=== PATIENT | female | born 1975 | race Caucasian/White ===

== ENCOUNTER 2017-10-04 10:45 | Emergency (ER) | payer OTHER ==
[~2017-10-04] VITALS: Ht 165.1 cm; Wt 53.5 kg
[2017-10-04] MEDS ORDERED: ATIVAN0.5 MG PO (10:59)
[2017-10-04] MEDS ORDERED: PROZAC20 MG PO (10:59)
[2017-10-04] MEDS ORDERED: IBUPROFEN 800800 MG PO (11:42)
[2017-10-04] MEDS ORDERED: NORCO 5-325 TA1 EACH PO (11:42)
[2017-10-04 12:16] VITALS: BP 126/79
== END 2017-10-04 12:16 | disposition home or self-care (01) ==
LOC: M.ERS 10:45
DX: R07.81 Pleurodynia (principal); F17.210 Nicotine dependence, cigarettes, uncomplicated; Z98.890 Other specified postprocedural states

== ENCOUNTER 2018-04-13 18:03 | Inpatient (IN) | payer OTHER ==
[~2018-04-13] VITALS: Ht 162.6 cm; Wt 61.2 kg
--- NOTE | ~2018-04-13 | CON ---
[address] [address] CONSULTATION Name: TRACE BLANCHARD Room: [address] IN ..#: [id number] Admission: 04/13/18 Attend Phys: Cruz James Discharge: Date of : 75 Report #: [id number] THIS REPORT FOR: //name// CC: Hayden Caba DATE OF SERVICE: 04/14/2018 HISTORY OF PRESENT ILLNESS: This is a pleasant 42-year-old female, with past medical history significant for depression, who is presenting with sudden onset abdominal cramps and rectal bleeding. The patient reports symptoms began yesterday. She reports she noticed a sudden gush of fluid in her underwear and noted that this was blood. The patient reports passing about 2 cupfuls of bright red blood along with clots. She reports lower abdominal pain, but denies any rectal pain. She reports associated nausea and vomiting in the morning, but denies any hematemesis. The patient denies having similar episodes in the past and has never had a colonoscopy prior. The patient does report intermittent NSAID use and also marijuana use. PAST MEDICAL HISTORY: Significant for depression. PAST SURGICAL HISTORY: Significant for hysterectomy. SOCIAL HISTORY: The patient smokes tobacco every day. She is a 1 pack per day smoker. As mentioned above, she reports intermittent marijuana use, last use was about 3 months back. She denies significant alcohol use. FAMILY HISTORY: There is no significant family history of colorectal cancer. REVIEW OF SYSTEMS: Negative except for what is mentioned in the HPI. PHYSICAL EXAMINATION: VITAL SIGNS: Temperature 36.5, pulse rate 50, blood pressure 104/57, respirations 17. GENERAL: The patient is alert, awake, oriented x 3, appears to be in mild distress. HEENT: Pupils equal, round, reactive to light and accommodation. Mucous membranes are moist. There is no congestion. LUNGS: Clear to auscultation bilaterally. CARDIOVASCULAR: Rate and rhythm regular, S1, S2 present. ABDOMEN: Soft. There is no distention, guarding or rigidity. EXTREMITIES: Warm, well perfused. There is no edema. SKIN: Warm and dry. LABORATORY DATA: Hemoglobin 11.3, hematocrit 33.3, WBC count 6.1, platelet count 231. Sodium 144, potassium 4.1, chloride 111, bicarbonate 25, BUN 8, [place] [address] CONSULTATION Name: TRACE BLANCHARD Room: [address]#: [id number] Admission: 04/13/18 Attend Phys: Cruz James Discharge: Date of : 75 Report #: [id number] creatinine 0.8, total bilirubin 0.4, AST 13, ALT 18, alkaline phosphatase 67. CT abdomen and pelvis demonstrates no intra-abdominal pelvic organ injury. GI bleeding scan, no active gastrointestinal bleeding noted. ASSESSMENT AND PLAN: A pleasant 42-year-old female, who is a current smoker, presenting with acute lower abdominal cramps and rectal bleeding. The patient also reports nausea and vomiting. There is no evidence of hematemesis. I suspect this is related to ischemic colitis, but since the patient has nonsteroidal anti-inflammatory drug use in the past and also has nausea and vomiting, we will proceed with EGD and colonoscopy tomorrow. Further recommendations will be based on that. By: [id number] Bonilla MD /nt
[~2018-04-13 18:03] MED LIST: ATIVAN0.5 MG PO; IBUPROFEN 800800 MG PO; NORCO 5-325 TA1 EACH PO; PROZAC20 MG PO
[2018-04-13 18:12] VITALS: BP 152/98
[2018-04-13 18:54] LABS: ABSOLUTE BASOPHILS 0.1 thou/uL (0.0-0.2); ABSOLUTE EOSINOPHILS 0.1 thou/uL (0.0-0.7); ABSOLUTE LYMPHOCYTES 3.4 thou/uL (0.8-5.3); ABSOLUTE MONOCYTES 0.4 thou/uL (0.0-1.2); ABSOLUTE NEUTROPHILS 3.2 thou/uL (1.6-8.1); EOSINOPHILS 0.9 %; HEMATOCRIT 36.6 % (37.0-47.0); HEMOGLOBIN 12.4 gm/dL (12.0-15.0); LYMPHOCYTES 47.8 %; MCH 30.4 pg (26.0-34.0); MCHC 33.8 g/dL (28.0-37.0); MCV 90.1 fL (80.0-100.0); MONOCYTES 5.5 %; MPV 7.3 fl. (7.2-11.1); NUCLEATED RBCS 0 /100WBC; PLATELET COUNT* 268 thou/uL (150-400); POLYS 44.8 %; RBC 4.07 mil/uL (4.20-5.00); RDW-CV 13.4 % (10.5-14.5); WBC 7.1 thou/uL (4.0-11.0)
[2018-04-13 19:00] LABS: CALCIUM 9.2 mg/dL (8.5-10.1); CREATININE 0.9 mg/dL (0.6-1.3); POTASSIUM 3.2 mmol/L (3.5-5.1)
[2018-04-13 19:03] LABS: APTT 28.9 Seconds (25.0-31.3); INR 1.1; PROTIME 11.3 Seconds (9.20-11.50)
[2018-04-13 19:04] LABS: ALBUMIN 3.8 g/dL (3.4-5.0); TOTAL BILIRUBIN 0.4 mg/dL (<0.1-1.0); TOTAL PROTEIN 7.2 g/dL (6.4-8.2)
[2018-04-13 19:27] LABS: URINE BILIRUBIN NEGATIVE (Negative); URINE BLOOD 2+ (Negative); URINE CLARITY CLEAR; URINE COLOR YELLOW; URINE GLUCOSE-RANDOM NEGATIVE (Negative); URINE KETONES NEGATIVE (Negative); URINE LEUKOCYTES-REFLEX NEGATIVE (Negative); URINE NITRITE-REFLEX NEGATIVE (Negative); URINE PROTEIN NEGATIVE (Negative); URINE UROBILINOGEN 0.2 E.U./dl (0.2-1.0)
[2018-04-13 19:41] LABS: SQUAMOUS 0-3 Few /LPF (0-3); URINE RBC 0-2 Rare /HPF (0-2); URINE WBC-REFLEX 6-15 Few /HPF (0-5)
[2018-04-13 19:42] LABS: BACTERIA-REFLEX >30 Many /HPF (None Seen); CASTS None Seen /LPF (None Seen); CRYSTALS None Seen /LPF (None Seen)
[2018-04-13 20:26] LABS: HEMATOCRIT 34.3 % (37.0-47.0); HEMOGLOBIN 11.6 gm/dL (12.0-15.0)
[2018-04-13 21:15] VITALS: BP 105/68
[2018-04-14] VITALS: BP 106/66
[2018-04-14 00:43] LABS: HEMATOCRIT 33.9 % (37.0-47.0); HEMOGLOBIN 11.5 gm/dL (12.0-15.0)
[2018-04-14 04:00] VITALS: BP 113/74
[2018-04-14 04:43] LABS: HEMATOCRIT 33.6 % (37.0-47.0); HEMOGLOBIN 11.3 gm/dL (12.0-15.0)
[2018-04-14 08:00] VITALS: BP 95/63
[2018-04-14 08:29] LABS: HEMOGLOBIN 11.3 gm/dL (12.0-15.0)
[2018-04-14 09:55] LABS: CALCIUM 8.2 mg/dL (8.5-10.1); CREATININE 0.8 mg/dL (0.6-1.3); POTASSIUM 4.1 mmol/L (3.5-5.1)
[2018-04-14 09:58] LABS: ABSOLUTE BASOPHILS 0.1 thou/uL (0.0-0.2); ABSOLUTE EOSINOPHILS 0.1 thou/uL (0.0-0.7); ABSOLUTE LYMPHOCYTES 3.4 thou/uL (0.8-5.3); ABSOLUTE MONOCYTES 0.5 thou/uL (0.0-1.2); ABSOLUTE NEUTROPHILS 2.1 thou/uL (1.6-8.1); BASOPHILS 0.8 %; EOSINOPHILS 1.3 %; MCH 30.8 pg (26.0-34.0); MCHC 33.7 g/dL (28.0-37.0); MCV 91.3 fL (80.0-100.0); MONOCYTES 7.9 %; MPV 7.3 fl. (7.2-11.1); NUCLEATED RBCS 0 /100WBC; PLATELET COUNT* 231 thou/uL (150-400); RBC 3.67 mil/uL (4.20-5.00); RDW-CV 13.2 % (10.5-14.5); WBC 6.1 thou/uL (4.0-11.0)
[2018-04-14 12:21] VITALS: BP 104/57
[2018-04-14 16:57] VITALS: BP 104/57
[2018-04-14 20:00] VITALS: BP 139/73
[2018-04-15] VITALS: BP 109/53
[2018-04-15 04:00] VITALS: BP 117/76
[2018-04-15 08:00] VITALS: BP 121/72
[2018-04-15] MEDS ORDERED: CIPRO500 MG PO (09:53)
[2018-04-15] MEDS ORDERED: ACETAMINOPHEN-1 EAC1 PO (09:53)
[2018-04-15] MEDS ORDERED: FLAGYL500 M1 PO (09:53)
[2018-04-15] MEDS ORDERED: PROTONIX40 M1 PO (09:53)
[2018-04-15 10:24] VITALS: BP 117/76
[2018-04-15 11:03] LABS: ABSOLUTE BASOPHILS 0.1 thou/uL (0.0-0.2); ABSOLUTE EOSINOPHILS 0.1 thou/uL (0.0-0.7); ABSOLUTE LYMPHOCYTES 1.9 thou/uL (0.8-5.3); ABSOLUTE MONOCYTES 0.4 thou/uL (0.0-1.2); ABSOLUTE NEUTROPHILS 5.2 thou/uL (1.6-8.1); BASOPHILS 0.9 %; EOSINOPHILS 0.8 %; HEMATOCRIT 33.8 % (37.0-47.0); HEMOGLOBIN 11.5 gm/dL (12.0-15.0); LYMPHOCYTES 24.5 %; MCH 30.8 pg (26.0-34.0); MCHC 33.9 g/dL (28.0-37.0); MCV 90.9 fL (80.0-100.0); MONOCYTES 5.6 %; MPV 7.2 fl. (7.2-11.1); NUCLEATED RBCS 0 /100WBC; PLATELET COUNT* 220 thou/uL (150-400); POLYS 68.2 %; RBC 3.72 mil/uL (4.20-5.00); RDW-CV 12.9 % (10.5-14.5); WBC 7.7 thou/uL (4.0-11.0)
[2018-04-15 11:08] LABS: CALCIUM 8.3 mg/dL (8.5-10.1); CREATININE 0.9 mg/dL (0.6-1.3); POTASSIUM 3.7 mmol/L (3.5-5.1)
--- NOTE | 2018-04-15 11:52 | CON ---
[address] [address] CONSULTATION Name: TRACE BLANCHARD Room: [address] IN .R.#: [id number] Admission: 04/13/18 Attend Phys: Cruz James Discharge: Date of : 75 Report #: [id number] THIS REPORT FOR: //name// CC: Hayden Caba DATE OF SERVICE: 04/14/2018 INFECTIOUS DISEASE CONSULTATION: ATTENDING PHYSICIAN: Dr. Caba. REASON FOR EVALUATION: Positive blood culture in the setting of a gastrointestinal hemorrhage. HISTORY OF PRESENT ILLNESS: Chart reviewed, patient examined. This is a 42-year-old woman with a previous partial hysterectomy, although it was 5 years ago, who presented with a fairly acute bleeding. Initially, felt to be vaginal, however, evaluation suggested by exclusion probably rectal. She became lightheaded. It is not clear that she had fevers, although feels quite shaky, some cold sweats that she describes. She recently has had poor appetite. She does admit to weight loss of perhaps 15-20 pounds, although she is not very big, now less than 120 pounds. Blood culture at the time of admission were collected, now one out of two positive for gram-positive cocci in chains. She is empirically placed on antimicrobials with vancomycin and piperacillin tazobactam. Currently, she is experiencing nausea pending emesis. ALLERGIES: None known. MEDICATIONS: Include vancomycin, Zosyn, morphine, ondansetron. PAST MEDICAL HISTORY: History of anxiety, hysterectomy, C-sections, previous appendectomy, history of depression. SOCIAL HISTORY: Smokes cigarettes, past 30 years, also marijuana. Occasional ethanol. FAMILY HISTORY: Noncontributory. REVIEW OF SYSTEMS: Denies significant pulmonary-related complaints, otherwise has not had significant abdominal related pain. She otherwise is unremarkable. A 10-point review of systems with exception noted in history of present illness. PHYSICAL EXAMINATION: GENERAL: She is moderate to marked distress at this point, the nausea is worsening. She is pending emesis. She appears chronically [place] [address] CONSULTATION Name: TRACE BLANCHARD Cruz Room: [address] IN [facility]#: [id number] Admission: 04/13/18 Attend Phys: Cruz James Discharge: Date of : 75 Report #: [id number] of acute illness and not necessarily toxic, appears undernourished. VITAL SIGNS: Temperature 97.9, pulse of 54, respirations 16, blood pressure 95/63. SKIN: Warm, dry, no rashes. HEENT: Otherwise, unremarkable. Normocephalic. Extraocular muscles intact. She is tearful. NECK: Supple. LUNGS: Somewhat diminished breath sounds, otherwise clear. HEART: Regular. Borderline bradycardic. I do not appreciate a murmur. ABDOMEN: Soft, slightly distended. There are no peritoneal signs. GENITOURINARY: Deferred. RECTAL: Deferred. LABORATORY DATA: Blood cultures described above, one out of two with Gram-positive cocci in chain. CBC: White count 6.1, H and H 11.3 and 33.0 and platelets of 231. Nuclear medicine scan showed no nuclear medicine evidence of active gastrointestinal bleeding. Lactic acid of 0.9. CT abdomen and pelvis, no abnormal fluid collections. No intra-abdominal pelvic organ injury is evident. Urinalysis 6-15 white cells, greater than 30 bacteria. Sodium 141, potassium 3.2, chloride 104, bicarbonate is 28, BUN and creatinine 8 and 0.9, glucose of 83. LFTs unremarkable. Albumin 3, total protein 7.2. ASSESSMENT: Acute gastrointestinal hemorrhage of unclear etiology. Positive blood culture. Certainly, she is quite ill, cannot entirely exclude a Streptococcal septicemia and certainly from gastrointestinal related source. We will continue empiric therapy. I am not sure, I think we can back off and just treat with piperacillin and tazobactam at this point. Await those results. GI is evaluating. I suspect at some point we will need a lower endoscopy. Currently, there is no active bleeding noted per staff. <ELECTRONICALLY SIGNED> By: Oziel Veras MD 04/15/18 1152 1125 [id number] Veras MD /nt
[2018-04-15 16:00] VITALS: BP 107/66
[2018-04-15 20:35] VITALS: BP 120/75
[2018-04-16] VITALS: BP 105/75
[2018-04-16 04:00] VITALS: BP 95/65
[2018-04-16 08:00] VITALS: BP 110/60
[2018-04-16 11:07] VITALS: BP 106/70
[2018-04-16 11:14] LABS: ABSOLUTE EOSINOPHILS 0.1 thou/uL (0.0-0.7); ABSOLUTE LYMPHOCYTES 1.9 thou/uL (0.8-5.3); ABSOLUTE MONOCYTES 0.3 thou/uL (0.0-1.2); ABSOLUTE NEUTROPHILS 3.3 thou/uL (1.6-8.1); BASOPHILS 0.9 %; EOSINOPHILS 1.1 %; HEMATOCRIT 31.9 % (37.0-47.0); MCH 31.4 pg (26.0-34.0); MCHC 34.7 g/dL (28.0-37.0); MCV 90.6 fL (80.0-100.0); MONOCYTES 6.1 %; MPV 7.4 fl. (7.2-11.1); NUCLEATED RBCS 0 /100WBC; PLATELET COUNT* 213 thou/uL (150-400); POLYS 57.9 %; RBC 3.52 mil/uL (4.20-5.00); RDW-CV 13.1 % (10.5-14.5); WBC 5.6 thou/uL (4.0-11.0)
[2018-04-16 11:23] LABS: CALCIUM 8.2 mg/dL (8.5-10.1); CREATININE 0.8 mg/dL (0.6-1.3); POTASSIUM 3.6 mmol/L (3.5-5.1)
[2018-04-16] MEDS ORDERED: PROTONIX40 M1 PO (12:16)
[2018-04-16] MEDS ORDERED: FLAGYL500 M1 PO (12:16)
[2018-04-16] MEDS ORDERED: NORCO 5-325 TA1 EACH PO (12:16)
[2018-04-16] MEDS ORDERED: CIPRO500 MG PO (12:16)
[2018-04-16] MEDS ORDERED: AUGMENTIN 875-1 EACH PO (13:54)
[2018-04-16 13:55] VITALS: BP 106/70
== END 2018-04-16 14:20 | disposition home or self-care (01) | DRG 760 ==
LOC: M.ERS 18:03 → M.2W 20:33 → M.TBA-ER 20:33 → M.2W 21:01
PROVIDERS: Internal Medicine; Physician Assistant; ADMIT Internal Medicine
PROC: 0DJD8ZZ Inspection of Lower Intestinal Tract, Via Natural or Artificial Opening Endoscopic (ICD-10-PCS; principal; 2018-04-15)
PROC: 0DJ08ZZ Inspection of Upper Intestinal Tract, Via Natural or Artificial Opening Endoscopic (ICD-10-PCS; principal; 2018-04-15)
DX: N93.9 Abnormal uterine and vaginal bleeding, unspecified (principal); K92.2 Gastrointestinal hemorrhage, unspecified; F41.9 Anxiety disorder, unspecified; F32.9 Major depressive disorder, single episode, unspecified; F12.90 Cannabis use, unspecified, uncomplicated; F17.210 Nicotine dependence, cigarettes, uncomplicated; K44.9 Diaphragmatic hernia without obstruction or gangrene; K64.8 Other hemorrhoids; K64.4 Residual hemorrhoidal skin tags; Z23 Encounter for immunization; Z90.49 Acquired absence of other specified parts of digestive tract; Z90.711 Acquired absence of uterus with remaining cervical stump

== ENCOUNTER 2019-08-19 11:45 | Emergency (ER) | payer OTHER ==
[~2019-08-19] VITALS: Ht 167.6 cm; Wt 52.6 kg
[~2019-08-19 11:45] MED LIST changes: +ACETAMINOPHEN-1 EAC1 PO; +AUGMENTIN 875-1 EACH PO; +CIPRO500 MG PO; +FLAGYL500 M1 PO; +PROTONIX40 M1 PO
[2019-08-19 12:02] LABS: URINE BILIRUBIN NEGATIVE (Negative); URINE BLOOD TRACE (Negative); URINE CLARITY CLEAR; URINE COLOR YELLOW; URINE GLUCOSE-RANDOM NEGATIVE (Negative); URINE KETONES NEGATIVE (Negative); URINE LEUKOCYTES-REFLEX NEGATIVE (Negative); URINE NITRITE-REFLEX NEGATIVE (Negative); URINE PROTEIN NEGATIVE (Negative); URINE UROBILINOGEN 0.2 E.U./dl (0.2-1.0)
[2019-08-19] MEDS ORDERED: LORAZEPAM 1 MG T1 MG PO (12:15)
[2019-08-19] MEDS ORDERED: MELOXICAM15 MG PO (12:15)
[2019-08-19] MEDS ORDERED: NORCO 5-325 TA1 EAC1 PO ×2 (12:16→15:41)
[2019-08-19 12:26] LABS: ABSOLUTE BASOPHILS 0.1 thou/uL (0.0-0.2); ABSOLUTE EOSINOPHILS 0.1 thou/uL (0.0-0.7); ABSOLUTE LYMPHOCYTES 2.2 thou/uL (0.8-5.3); ABSOLUTE MONOCYTES 0.5 thou/uL (0.0-1.2); ABSOLUTE NEUTROPHILS 4.6 thou/uL (1.6-8.1); BASOPHILS 0.8 %; EOSINOPHILS 0.9 %; HEMATOCRIT 38.2 % (37.0-47.0); LYMPHOCYTES 29.1 %; MCH 30.7 pg (26.0-34.0); MCV 90.4 fL (80.0-100.0); MONOCYTES 6.8 %; MPV 6.9 fl. (7.2-11.1); NUCLEATED RBCS 0 /100WBC; PLATELET COUNT* 266 thou/uL (150-400); POLYS 62.4 %; RBC 4.22 mil/uL (4.20-5.00); RDW-CV 14.2 % (10.5-14.5); WBC 7.4 thou/uL (4.0-11.0)
[2019-08-19 12:33] LABS: CALCIUM 8.3 mg/dL (8.5-10.1); CREATININE 0.8 mg/dL (0.6-1.3); POTASSIUM 4.1 mmol/L (3.5-5.1)
[2019-08-19 12:37] LABS: ALBUMIN 3.8 g/dL (3.4-5.0); TOTAL BILIRUBIN 0.4 mg/dL (<0.1-1.0); TOTAL PROTEIN 7.1 g/dL (6.4-8.2)
[2019-08-19] MEDS ORDERED: SUPRAX400 M1 PO (15:42)
[2019-08-19] MEDS ORDERED: AZITHROMYCIN250 MG PO (15:42)
[2019-08-19 16:00] VITALS: BP 110/60
== END 2019-08-19 16:00 | disposition home or self-care (01) ==
LOC: M.ERS 11:45
PROVIDERS: Family Medicine
DX: N72 Inflammatory disease of cervix uteri (principal); N83.202 Unspecified ovarian cyst, left side; F12.90 Cannabis use, unspecified, uncomplicated; Z79.899 Other long term (current) drug therapy; Z98.890 Other specified postprocedural states; Z90.49 Acquired absence of other specified parts of digestive tract

== ENCOUNTER 2020-08-01 11:51 | Emergency (ER) | payer OTHER ==
[~2020-08-01] VITALS: Ht 167.6 cm; Wt 72.6 kg
[~2020-08-01 11:51] MED LIST changes: +AZITHROMYCIN250 MG PO; +LORAZEPAM 1 MG T1 MG PO; +MELOXICAM15 MG PO; +NORCO 5-325 TA1 EAC1 PO; +SUPRAX400 M1 PO
[2020-08-01] MEDS ORDERED: LITHIUM CARBON300 M3 PO (12:04)
[2020-08-01] MEDS ORDERED: RELAFEN500 M1 PO (13:02)
[2020-08-01 13:17] VITALS: BP 118/68
== END 2020-08-01 13:17 | disposition home or self-care (01) ==
LOC: M.ERS 11:51
DX: S93.401A Sprain of unspecified ligament of right ankle, initial encounter (principal); F41.9 Anxiety disorder, unspecified; Z90.711 Acquired absence of uterus with remaining cervical stump; Z90.49 Acquired absence of other specified parts of digestive tract; Z98.890 Other specified postprocedural states; Z79.899 Other long term (current) drug therapy; W01.0XXA Fall on same level from slipping, tripping and stumbling without subsequent striking against object, initial encounter; Y93.89 Activity, other specified; Y92.69 Other specified industrial and construction area as the place of occurrence of the external cause; Y99.0 Civilian activity done for income or pay

== ENCOUNTER 2020-09-05 08:36 | Emergency (ER) | payer OTHER ==
[~2020-09-05] VITALS: Ht 167.6 cm; Wt 57.6 kg
[~2020-09-05 08:36] MED LIST changes: +LITHIUM CARBON300 M3 PO; +RELAFEN500 M1 PO
[2020-09-05] MEDS ORDERED: CLEOCIN HCL300 MG PO (08:39)
[2020-09-05] MEDS ORDERED: ESTROGEN (08:47)
[2020-09-05 08:50] LABS: URINE BILIRUBIN NEGATIVE (Negative); URINE BLOOD 2+ (Negative); URINE CLARITY CLEAR; URINE COLOR YELLOW; URINE GLUCOSE-RANDOM NEGATIVE (Negative); URINE KETONES NEGATIVE (Negative); URINE LEUKOCYTES-REFLEX 1+ (Negative); URINE NITRITE-REFLEX NEGATIVE (Negative); URINE PROTEIN TRACE (Negative); URINE SPECIFIC GRAVITY 1.015 (1.005-1.030); URINE UROBILINOGEN 0.2 E.U./dl (0.2-1.0)
[2020-09-05 08:59] LABS: SQUAMOUS 0-3 Few /LPF (0-3)
[2020-09-05 09:00] LABS: CASTS None Seen /LPF (None Seen); CRYSTALS None Seen /LPF (None Seen); MUCUS 0-3 Light strn/LPF (None Seen); URINE RBC 3-10 Few /HPF (0-2)
[2020-09-05 09:15] LABS: ABSOLUTE BASOPHILS 0.1 thou/uL (0.0-0.2); ABSOLUTE EOSINOPHILS 0.1 thou/uL (0.0-0.7); ABSOLUTE LYMPHOCYTES 1.8 thou/uL (0.8-5.3); ABSOLUTE MONOCYTES 0.6 thou/uL (0.0-1.2); ABSOLUTE NEUTROPHILS 6.3 thou/uL (1.6-8.1); BASOPHILS 1.1 %; EOSINOPHILS 1.1 %; HEMATOCRIT 37.8 % (37.0-47.0); HEMOGLOBIN 13.2 gm/dL (12.0-15.0); LYMPHOCYTES 19.9 %; MCH 30.9 pg (26.0-34.0); MCHC 34.9 g/dL (28.0-37.0); MCV 88.8 fL (80.0-100.0); MONOCYTES 6.3 %; MPV 7.2 fl. (7.2-11.1); NUCLEATED RBCS 0 /100WBC; PLATELET COUNT* 289 thou/uL (150-400); POLYS 71.6 %; RBC 4.26 mil/uL (4.20-5.00); RDW-CV 13.3 % (10.5-14.5); WBC 8.8 thou/uL (4.0-11.0)
[2020-09-05 09:23] LABS: CALCIUM 9.1 mg/dL (8.5-10.1); CREATININE 0.8 mg/dL (0.6-1.3); POTASSIUM 4.1 mmol/L (3.5-5.1)
[2020-09-05 09:28] LABS: ALBUMIN 3.7 g/dL (3.4-5.0); TOTAL BILIRUBIN 0.7 mg/dL (<0.1-1.0); TOTAL PROTEIN 7.3 g/dL (6.4-8.2)
[2020-09-05] MEDS ORDERED: CEPHALEXIN500 MG PO (10:43)
[2020-09-05] MEDS ORDERED: NORCO5 PO ×2 (10:43→10:54)
[2020-09-05 11:47] VITALS: BP 114/68
== END 2020-09-05 11:47 | disposition home or self-care (01) ==
LOC: M.ERS 08:36
PROVIDERS: Emergency Medicine
DX: N39.0 Urinary tract infection, site not specified (principal); Z90.711 Acquired absence of uterus with remaining cervical stump; Z90.49 Acquired absence of other specified parts of digestive tract; Z98.890 Other specified postprocedural states

== ENCOUNTER 2021-01-23 10:56 | Emergency (ER) | payer OTHER ==
[~2021-01-23] VITALS: Ht 167.6 cm; Wt 58.5 kg
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
[~2021-01-23 10:56] MED LIST changes: +CEPHALEXIN500 MG PO; +CLEOCIN HCL300 MG PO; +ESTROGEN; +NORCO5 PO
[2021-01-23] MEDS ORDERED: LORAZEPAM 2MG TA2 M1 PO (11:07)
[2021-01-23] MEDS ORDERED: IBUPROFEN 800800 M1 PO (12:04)
[2021-01-23 12:27] VITALS: BP 130/62
== END 2021-01-23 12:31 | disposition home or self-care (01) ==
LOC: M.ERS 10:56
DX: S63.501A Unspecified sprain of right wrist, initial encounter (principal); S60.221A Contusion of right hand, initial encounter; S60.222A Contusion of left hand, initial encounter; F32.9 Major depressive disorder, single episode, unspecified; Y04.8XXA Assault by other bodily force, initial encounter; Y93.89 Activity, other specified; Y92.89 Other specified places as the place of occurrence of the external cause; Y99.8 Other external cause status